=== PATIENT | female | born 1985 | race Caucasian/White ===

== ENCOUNTER → 2017-12-03 15:10 | Observation (INO) ==
[2017-12-03 14:58] LABS: Amphetamine Screen,Urine Negative ng/mL (Cutoff=1000); Barbiturate Screen,Urine Negative ng/mL (Cutoff=200); Benzodiazepines Screen,Urine Negative ng/mL (Cutoff=200); Cannabinoid Screen,Urine Negative ng/mL (Cutoff = 50); Cocaine Screen,Urine Negative ng/mL (Cutoff= 300); Opiate Screen,Urine Negative ng/mL (Cutoff=300); Phencyclidine Screen,Urine Negative ng/mL (Cutoff=25)
--- NOTE | 2017-12-03 16:14 | OB/GYN Progress Note ---
Date of Encounter: 12/03/17 Time of Encounter: 16:12 - Assessment and Plan (1) NST (non-stress test) reactive Status: Acute Baseline 140 (2) 36 weeks gestation of Status: Acute (3) Gestational diabetes mellitus in third trimester Status: Acute Qualifiers: Gestational diabetes mellitus control: diet-controlled Qualified Code(s): O24.410 - Gestational diabetes mellitus in , diet controlled Subjective - Subjective Interval history: Here for NST Antepartum ROS: movement normal, no loss of fluid, no vaginal bleeding, no contractions Objective - Vital Signs Vital Signs: Intake and Output 12/03/17 12/03/17 12/03/17 07:59 15:59 23:59 Other: Weight 84.4 kg Patient Weight 12/03/17 23:59 Weight 84.4 kg - Exam FHR: auscultation normal FHR comments: 140
== END | disposition home or self-care (01) ==
LOC: 1NENULAB
PROVIDERS: ADMIT Student in an Organized Health Care Education/Training Program; ATTEND Student in an Organized Health Care Education/Training Program

== ENCOUNTER 2017-12-22 07:17 | Inpatient (IN) ==
[2017-12-22] MEDS ORDERED: CeFAZolin Premix DUPLEX 2,000 MG/50 ML BAG IVPB ONE (07:49)
[2017-12-22] MEDS ORDERED: Oxytocin 20 units/ LR 1000 mL 20 UNIT/1,000 ML BAG IVC ONE (07:49)
[2017-12-22] MEDS ORDERED: Ringers Solution, Lactated 1,000 ML IVC ONE (07:49)
[2017-12-22] MEDS ORDERED: Famotidine 20 MG/2 ML VIAL IVP ONE (07:49)
[2017-12-22] MEDS ORDERED: Metoclopramide 10 MG/2 ML VIAL IVP ONE (07:49)
[2017-12-22] MEDS ORDERED: Ringers Solution, Lactated 1,000 ML IVC SCH ×3 (08:00→13:45)
[2017-12-22] MEDS ORDERED: Oxytocin 20 units/ LR 1000 mL 20 UNIT/1,000 ML BAG IVC SCH ×2 (08:00→13:45)
[2017-12-22 08:06] LABS: Basophils % 0.2 %; Eosinophils # 0.1 K/mcL (0.0-0.6); Eosinophils % 0.9 %; Hematocrit 33.9 % (35.3-44.9); Hemoglobin 11.5 g/dL (11.5-15.4); Immature Granulocytes % 0.7 % (0-4); Lymphocytes # 2.4 K/mcL (0.6-4.6); Lymphocytes % 19.7 %; Mean Corpuscular HGB Conc 33.9 g/dL (31.6-35.5); Mean Corpuscular Hemoglobin 31.1 pg (28.0-33.3); Mean Corpuscular Volume 91.6 fL (83.0-100.0); Mean Platelet Volume 11.9 fL (9.4-12.4); Monocytes # 0.9 K/mcL (0.0-1.3); Monocytes % 7.5 %; Neutrophils # 8.5 K/mcL (1.6-8.9); Platelet Count 194 K/mcL (140-400); Red Cell Distribution Width 14.4 % (11.5-14.5)
--- NOTE | 2017-12-22 08:14 | Anesthesia Evaluation PreOp ---
Date of Encounter: 12/22/17 Time of Encounter: 08:10 - Past History Planned Operation: Repeat Cardiac History: Denies any Significant Hx Pulmonary History: Denies Any Significant HX [employer] History: Denies Any Significant HX Other Medical History: Diabetes Type II (Gestational) Anesthesia History: No Prior Anesthetic Complications : Yes (39 weeks) Alcohol Use: none Drug use: none Medications and Allergies 3 Allergy/AdvReac Type Severity Reaction Status Date / Time No Known Allergies Allergy Verified 02/11/17 17:46 - Meds/Allergy Pre-op Review Medications Reviewed: Yes Allergies Reviewed: Yes Beta Blockers on Current Med List: No Anesthesia Results - Labs 12/22/17 07:51 Laboratory Tests 02/11/17 12/22/17 18:13 07:51 Hgb 11.5 Hct 33.9 L Plt Count 194 Sodium 140 Potassium 3.8 BUN 11 Creatinine 0.78 Anesthesia Exam O2 Sat Height 1.52 m Weight 86.4 kg Height: 5'0 Weight: 86 kg NPO (# of Hours): MN Pain Scale: 0 - HEENT Pupil (Motor): Pupils equal, EOMI Mallampati: II Teeth: Normal Oral Opening: Greater than 3 - [employer] LOC: Oriented [employer] Motor: Normal RUE, Normal LUE, Normal RLE, Normal LLE, Normal Face [employer] Sensory: Normal: RUE, LUE, RLE, LLE, Face - Cardiac Rhythm: Regular Murmur: None JVD: No Carotid Bruit: No - Pulmonary Breath Sounds: bilateral Clear Respiratory Effort: Symmetrical Anesthesia Assess/Plan ASA Score: 2 Modified Rachid Scale for Level of Consciousness: Cooperative, oriented, and tranquil Anesthetic Plan: Regional Monitoring Plan: Standard Monitors Recovery Plan: PACU (Discussed SAB, possible GA, agrees to proceed)
[2017-12-22 08:22] LABS: Alanine Aminotransferase 9 Units/L (7-52); Aspartate Amino Transferase 14 Units/L (13-39); BUN/Creatinine Ratio 17 (6-26); Blood Urea Nitrogen 8 mg/dL (6-20); Lactate Dehydrogenase 172 Units/L (140-271); Uric Acid 3.9 mg/dL (2.3-7.6); eGFR For African Americans > 60 (> 60); eGFR For Non-African Americans > 60 (> 60)
[2017-12-22 08:54] LABS: Glucose 92 mg/dL (70-105)
[2017-12-22 09:23] LABS: Amphetamine Screen,Urine Negative ng/mL (Cutoff=1000); Barbiturate Screen,Urine Negative ng/mL (Cutoff=200); Benzodiazepines Screen,Urine Negative ng/mL (Cutoff=200); Cannabinoid Screen,Urine Negative ng/mL (Cutoff = 50); Cocaine Screen,Urine Negative ng/mL (Cutoff= 300); Opiate Screen,Urine Negative ng/mL (Cutoff=300); Phencyclidine Screen,Urine Negative ng/mL (Cutoff=25)
[2017-12-22] MEDS ORDERED: *HR* OxyCODONE Immed Rel 5 MG TABLET PO PRN (11:01)
[2017-12-22] MEDS ORDERED: *HR* HYDROmorphone 2 MG TABLET PO PRN (11:01)
[2017-12-22] MEDS ORDERED: Naloxone 0.4 MG/ML INJ IVP PRN (11:01)
[2017-12-22] MEDS ORDERED: *HR* Meperidine 25 MG/ML SYRINGE IVP PRN (11:01)
[2017-12-22] MEDS ORDERED: Ondansetron 4 MG/2 ML VIAL IVP ONE (11:01)
[2017-12-22] MEDS ORDERED: Albuterol 2.5 MG/3 ML NEBULIZER IH ONE (11:01)
[2017-12-22] MEDS ORDERED: Acetaminophen IV 1,000 MG/100 ML INFUS..BTL IVPB ONE (11:01)
--- NOTE | 2017-12-22 11:18 | History & Physical Report ---
Date of Encounter: 12/22/17 Time of Encounter: 11:17 24 Hour HP Update - Instructions Instructions: If the History and Physical is less than 30 days old and was completed prior to A.M. admission and or procedure and has NOT been updated on calendar day of procedure please complete this update prior to performing procedure. - Update Patient reports changes in Medical Condition: No Changes in examination, assessment, or condition: No Changes in Medication: No Preop tests/diagnostics Reviewed: Yes Surgery Remains Indicated: Yes Consent for Planned Operative Procedure(s) Verified: Yes - Pre-Operative Checklist Preoperative Checklist Indicated: Yes Prophylactic Antibiotic Ordered: Yes Home Medications Include Beta Rah: No Beta Rah Taken Today (Day of Surgery): No Beta Rah Taken Yesterday (Day Prior to Surgery): No Is VTE Prophylaxis Indicated?: Yes
[2017-12-22] MEDS ORDERED: Water for inj. (sterile) 10 ML IV ONE (12:02)
[2017-12-22] MEDS ORDERED: *HR* Oxytocin 10 UNIT/ML VIAL IM ONE (12:02)
[2017-12-22] MEDS ORDERED: EPHEDrine 50 MG/ML VIAL ONE (12:02)
[2017-12-22] MEDS ORDERED: Ondansetron 4 MG/2 ML VIAL ONE (12:02)
--- NOTE | 2017-12-22 12:09 | Anesthesia Procedures ---
Date of Encounter: 12/22/17 Time of Encounter: 11:57 Procedures: Anesthesia - Epidural/Spinal Patient ID/Chart reviewed: Yes Patient examined: Yes OB Eval: Gestational age: term OB Eval: : 5 OB Eval: Hx Para: 3 OB Eval: Contractions: Non-stressed pattern Consent Obtained: Yes Supplemental Oxygen: Nasal Cannula Supplemental Oxygen Rate (L/min): 2 Site Prep: Aseptic Technique, Sterile prep and drape, Povidone-Iodine 1% Patient position: upright Local Anesthetic: Lidocaine 1% Amount of Local Anesthetic used: 3 Interspace Used: L3-L4 Blood: No CSF: Yes Paresthesia: No Spinal Needle Gauge: 25 (pencan) Spinal Dose: 2ml 0.5%bupiv 10mcgfentanyl 0.3mg duramorph Procedure: pt tolerated procedure well. no complications. vss. fhr stable. see anes record for complete vitals.
[2017-12-22] MEDS ORDERED: Ringers Solution, Lactated 1,000 ML ONE (12:24)
[2017-12-22] MEDS ORDERED: Lidocaine -MPF 1% 5 ML AMPUL ONE (12:25)
--- NOTE | 2017-12-22 13:44 | OB/GYN Procedure Note ---
Section - Date of procedure: 12/22/17 Preop diagnosis: desires repeat Post-op diagnosis: same Procedure: repeat low transverse, bilateral tubal ligation Surgeon: Yenny Urena Estimated blood loss (cc): 500 Was there an market research assistant present: Yes Wedger Machine: Clara Giordano Anesthesiologist: Karsten Gusman Head Soft Sugar Operator: Juan Luis Oliver Anesthesia Type: Spinal section complications: none Disposition: L&D Recovery Room Specimens: Cord blood - Infant (s) A Delivery Date: 12/22/17 Infant Delivery Time: 12:39 Presentation: vertex Position: unknown Gender: Male Gram Weight: 3.25 kg at 1 minute: 9 at 5 minutes: 9 Shoulder Dystocia: not encountered - Narrative Narrative: Patient was brought to the operating room and was given satisfactory spinal anesthesia. The abdomen was prepped and draped in a sterile fashion. A Pfannenstiel incision was made and carried sharply down to the level of fascia. The fascia was incised transversely. The fascia was dissected away from the underlying rectus muscles. With sharp and blunt dissection, rectus muscles were divided in midline. The peritoneum was entered bluntly. The incision was carried vertically with scissors. Transverse incision was made across the bladder peritoneum. The bladder was dissected away from the underlying lower uterine segment. Bladder retractor was placed to protect the bladder. The lower uterine segment was entered sharply with a scalpel. The Incision was extended with bandage scissors. The amniotic sac was ruptured and clear stained amniotic fluid was encountered. The 's head was pulled up and delivered easily as were the shoulders and body. The mouth and oropharynx were suctioned. The cord was clamped and cut. The infant was passed off to the waiting nurse in satisfactory condition. APGARS 9/9, weight 3250g. Placenta was extracted completely and found to be intact. Uterus was explored and found to be empty. Uterus was delivered through the abdominal incision and massaged vigorously. Intravenous Pitocin was administered. The uterine incision was closed primarily with a running locking stitch of 0 Vicryl with adequate hemostasis. Secondary running locking stitch was placed for extra strength to the wound. At this point, attention was diverted to the patient's tubes, a Maru clamp grasped the isthmic portion of each tube and approximately 1-cm knuckle on either side was tied off with two lengths of 0 plain catgut. Intervening knuckle was excised and passed off the field. The uterus was returned to its proper anatomic position in the abdomen. The fascia was closed with a simple running stitch of 0 vicryl. The skin was closed with running subcuticular stitch of 4-0 vicryl. Uterus was expressed of its contents. Patient was brought to the recovery room in satisfactory condition. There were no complications. All sponge, needle, and instrument counts were reported to be correct.
[2017-12-22] MEDS ORDERED: Simethicone 80 MG TAB.CHEW PO PRN (13:45)
[2017-12-22] MEDS ORDERED: Ondansetron 4 MG/2 ML VIAL IVP PRN (13:45)
[2017-12-22] MEDS ORDERED: Sennosides 8.6 MG TABLET PO PRN (13:45)
[2017-12-22] MEDS ORDERED: Metoclopramide 10 MG/2 ML VIAL IVP PRN (13:45)
--- NOTE | 2017-12-22 14:31 | Anesthesia Evaluation Post Op ---
Date of Encounter: 12/22/17 Time of Encounter: 14:30 - Lungs Lungs: Clear Ascult./Percussion - Airway Airway: Non-obstructed - Cardiovascular Regular Rate, Baseline Rhythm - Mental Status Mental Status: Alert & Oriented, Answers Appropriately, Baseline Status - Pain Pain Scale: 2 Pain Scale used: Numeric (1 - 10) - Nausea Vomiting Nausea Vomiting: Not Present - Hydration Hydration: NPO, Nava catheter - Discharge PostOp Status: Transfer Patient to floor
[2017-12-22] MEDS: Ibuprofen 600 MG TABLET PO PRN (21:07)
[2017-12-22] MEDS: *HR* OxyCODONE/APAP 5/325 TABLET PO PRN (22:48)
[2017-12-23] MEDS: *HR* OxyCODONE/APAP 5/325 TABLET PO PRN ×3 (03:34→12:32)
[2017-12-23] MEDS: Ibuprofen 600 MG TABLET PO PRN ×2 (03:34→12:32)
[2017-12-23 04:48] LABS: Basophils % 0.2 %; Eosinophils # 0.1 K/mcL (0.0-0.6); Eosinophils % 0.7 %; Hematocrit 33.2 % (35.3-44.9); Hemoglobin 11.1 g/dL (11.5-15.4); Immature Granulocytes % 0.4 % (0-4); Lymphocytes # 2.2 K/mcL (0.6-4.6); Lymphocytes % 17.5 %; Mean Corpuscular HGB Conc 33.4 g/dL (31.6-35.5); Mean Corpuscular Hemoglobin 30.5 pg (28.0-33.3); Mean Corpuscular Volume 91.2 fL (83.0-100.0); Mean Platelet Volume 12.2 fL (9.4-12.4); Monocytes # 0.8 K/mcL (0.0-1.3); Monocytes % 6.4 %; Neutrophils # 9.3 K/mcL (1.6-8.9); Platelet Count 182 K/mcL (140-400); Red Blood Count 3.64 M/mcL (3.82-4.97); Red Cell Distribution Width 14.6 % (11.5-14.5); Segmented Neutrophils % 74.8 %
[2017-12-23] MEDS ORDERED: Prenatal Vit/FA 1 EACH TABLET PO SCH (09:00)
[2017-12-23 11:40] VITALS: BP 137/83
--- NOTE | 2017-12-23 15:02 | Discharge Summary ---
Date of Encounter: 12/23/17 Time of Encounter: 15:00 ( ) - Discharge Diagnosis (1) Status post section Priority: Primary Status: Acute Comments: POD #1 Pain well controlled with PO medications Tolerating regular diet Voiding independently Passing flatus, but no BM yet Lochia light Ambulating independently Requesting early discharge today Ok to discharge home and follow up as scheduled - Discharge Medications Prescriptions: OxyCODONE/APAP 5/325 [Percocet 5/325 MG] 1 each PO Q4HR PRN 5 Days #30 tablet PRN Reason: Moderate pain 4-6 Ibuprofen [Motrin] 600 mg PO Q6HR PRN #30 tablet PRN Reason: Cramping Docusate [Colace] 100 mg PO BID #30 capsule Home Medications: Docusate [Colace] 100 mg PO BID #30 capsule 12/23/17 [Rx] Ibuprofen [Motrin] 600 mg PO Q6HR PRN #30 tablet 12/23/17 [Rx] OxyCODONE/APAP 5/325 [Percocet 5/325 MG] 1 each PO Q4HR PRN 5 Days #30 tablet [Rx] Vit/FA 1 each PO DAILY tablet 12/23/17 [Rx] Simethicone [Gas-X] 80 mg PO TID PRN tab.chew 12/23/17 [Rx] Allergies/Adverse Reactions: 3 Allergy/AdvReac Type Severity Reaction Status Date / Time No Known Allergies Allergy Verified 02/11/17 17:46 Data Procedures and tests throughout hospitalization: Laboratory Tests 12/22/17 12/22/17 12/22/17 07:51 07:55 08:45 WBC 11.9 H RBC 3.70 L Hgb 11.5 Hct 33.9 L MCV 91.6 MCH 31.1 MCHC 33.9 RDW 14.4 Plt Count 194 MPV 11.9 Immature Gran % 0.7 Seg Neutrophils % 71.0 Lymphocytes % 19.7 Monocytes % 7.5 Eosinophils % 0.9 Basophils % 0.2 Neutrophils # 8.5 Lymphocytes # 2.4 Monocytes # 0.9 Eosinophils # 0.1 Basophils # 0.0 BUN 8 Creatinine 0.48 L Est GFR ( Amer) > 60 Est GFR (Non-Af Amer) > 60 BUN/Creatinine Ratio 17 Glucose 92 Uric Acid 3.9 AST 14 ALT 9 Lactate Dehydrogenase 172 Urine Opiates Screen Negative Ur Barbiturates Screen Negative Ur Phencyclidine Scrn Negative Ur Amphetamines Screen Negative U Benzodiazepines Scrn Negative Urine Cocaine Screen Negative U Marijuana (THC) Screen Negative 12/23/17 04:21 WBC 12.4 H RBC 3.64 L Hgb 11.1 L Hct 33.2 L MCV 91.2 MCH 30.5 MCHC 33.4 RDW 14.6 H Plt Count 182 MPV 12.2 Immature Gran % 0.4 Seg Neutrophils % 74.8 Lymphocytes % 17.5 Monocytes % 6.4 Eosinophils % 0.7 Basophils % 0.2 Neutrophils # 9.3 H Lymphocytes # 2.2 Monocytes # 0.8 Eosinophils # 0.1 Basophils # 0.0 BUN Creatinine Est GFR ( Amer) Est GFR (Non-Af Amer) BUN/Creatinine Ratio Glucose Uric Acid AST ALT Lactate Dehydrogenase Urine Opiates Screen Ur Barbiturates Screen Ur Phencyclidine Scrn Ur Amphetamines Screen U Benzodiazepines Scrn Urine Cocaine Screen U Marijuana (THC) Screen Labs on day of discharge: Labs from last 24 hours 12/23/17 04:21 WBC 12.4 H RBC 3.64 L Hgb 11.1 L Hct 33.2 L MCV 91.2 MCH 30.5 MCHC 33.4 RDW 14.6 H Plt Count 182 MPV 12.2 Immature Gran % 0.4 Seg Neutrophils % 74.8 Lymphocytes % 17.5 Monocytes % 6.4 Eosinophils % 0.7 Basophils % 0.2 Neutrophils # 9.3 H Lymphocytes # 2.2 Monocytes # 0.8 Eosinophils # 0.1 Basophils # 0.0 Date of admission: 12/22/17 07:17 Primary care physician: PCP NONE Discharging clinician: Mendy Seay Anticipated date of discharge: 12/23/17 - Patient Status Disposition: Home, Self-Care Condition: Good Functional capacity at discharge: independent ambulation Overall status at discharge: patient is progressing back to baseline - Discharge Instructions Follow Up With: NONE,PCP [Primary Care Provider] - Jeremiah Ochoa DO [Partnered Physician] - - Diet and Activity Activity: increase activity as tolerated Diet: regular diet Hospital Course Reason for admission: section, IUP at term Delivery: section Episiotomy: none Laceration: none Other procedures: none complications: none Discharge diagnosis: IUP at term delivered baby: male Time Attestation: Total time spent providing and/or coordinating discharge services: Time Spent: Less than 30 minutes - VTE Documentation of Mechanical Device: Intermittent pneumatic compression device Exam - Constitutional Vitals: Temp Pulse Resp BP Pulse Ox 98.4 F 92 16 137/83 96 12/23/17 11:39 12/23/17 11:39 12/23/17 11:39 12/23/17 11:39 12/23/17 11:39 General appearance IM: A&O X 3 - Respiratory Respiratory exam: Present: CTAB - Cardiovascular Cardiovascular exam IM: Present: RRR, +S1, +S2 - GI/Abdominal GI/Abdominal exam IM: normal bowel sounds Incision: normal, dry, intact - Rectal Rectal exam: deferred - Uterine Tone: Firm Uterus Position: At Umbilicus, Midline - Extremities Exam Extremities exam IM: Present: normal inspection - Neurological Exam Neurological exam: alert, oriented X3 - Psychiatric Additional comments: Patient feeling well today - s/sx of ppd discussed with her and partner.
== END 2017-12-23 15:55 | disposition home or self-care (01) | DRG 540 ==
LOC: 1NENULAB 07:17 → 1NENUOBS 15:52
PROVIDERS: ADMIT Student in an Organized Health Care Education/Training Program; ATTEND Student in an Organized Health Care Education/Training Program

== ENCOUNTER 2019-09-27 19:21 | Observation (INO) ==
[2019-09-27] MEDS ORDERED: 0.9 % Sodium Chloride 1,000 ML IVC ONE (20:29)
[2019-09-27] MEDS ORDERED: *HR* FentaNYL (PF) 100 MCG/2 ML VIAL IVP ONE (20:29)
[2019-09-27 20:34] LABS: Bilirubin,Urine Moderate (Negative); Blood,Urine Negative (Negative); Color,Urine Dark Yellow (Yellow); Glucose,Urine (UA) Normal (Normal); Ketones,Urine Negative (Negative); Leukocyte Esterase,Urine Negative (Negative); Nitrite,Urine Negative (Negative); Protein,Urine Trace mg/dL (Neg-Trace); Specific Gravity,Urine 1.017 (1.010-1.025)
[2019-09-27 20:35] LABS: Clarity,Urine Hazy (Clear)
[2019-09-27] MEDS ORDERED: Ondansetron 4 MG/2 ML VIAL IVP STA (20:36)
[2019-09-27 20:54] LABS: Basophils # 0.1 K/mcL (0.0-0.2); Basophils % 0.6 %; Eosinophils # 0.3 K/mcL (0.0-0.6); Eosinophils % 2.6 %; Hematocrit 34.8 % (35.3-44.9); Hemoglobin 11.9 g/dL (11.5-15.4); Immature Granulocytes % 0.3 % (0-4); Lymphocytes # 2.4 K/mcL (0.6-4.6); Lymphocytes % 25.8 %; Mean Corpuscular HGB Conc 34.2 g/dL (31.6-35.5); Mean Corpuscular Hemoglobin 31.4 pg (28.0-33.3); Mean Corpuscular Volume 91.8 fL (83.0-100.0); Mean Platelet Volume 11.1 fL (9.4-12.4); Monocytes # 0.8 K/mcL (0.0-1.3); Neutrophils # 5.9 K/mcL (1.6-8.9); Platelet Count 282 K/mcL (140-400); Red Blood Count 3.79 M/mcL (3.82-4.97); Red Cell Distribution Width 16.1 % (11.5-14.5); Segmented Neutrophils % 62.7 %; White Blood Count 9.5 K/mcL (4.3-11.1)
[2019-09-27 21:14] LABS: Alanine Aminotransferase 326 Units/L (7-52); Albumin 4.1 g/dL (3.5-5.7); Albumin/Globulin Ratio 1.5 (1.1-2.2); Alkaline Phosphatase 272 Units/L (34-104); Aspartate Amino Transferase 119 Units/L (13-39); BUN/Creatinine Ratio 18 (6-26); Bilirubin,Direct 2.8 mg/dL (0.0-0.2); Bilirubin,Indirect 1.7 mg/dL (0.0-1.0); Bilirubin,Total 4.5 mg/dL (0.3-1.0); Blood Urea Nitrogen 10 mg/dL (6-20); Calcium 9.2 mg/dL (8.6-10.3); Carbon Dioxide 19 mEq/L (23-29); Chloride 108 mEq/L (98-107); Globulin 2.7 g/dL (2.4-3.5); Glucose 120 mg/dL (70-105); Lipase 16 Units/L (11-82); Osmolality,Calculated 282 (280-300); Potassium 3.7 mEq/L (3.5-5.1); Sodium 136 mEq/L (136-145); Total Protein 6.8 g/dL (6.4-8.9); eGFR For African Americans > 60 (> 60); eGFR For Non-African Americans > 60 (> 60)
[2019-09-27] MEDS ORDERED: *HR* HYDROmorphone (PF) 1 MG/ML SYRINGE IVP ONE (22:33)
[2019-09-27] MEDS: Nicotine 21 MG PATCH.TD24 TD SCH (22:54)
[2019-09-27] MEDS ORDERED: Naloxone 0.4 MG/ML INJ IVP PRN (23:26)
[2019-09-27] MEDS ORDERED: Ondansetron 4 MG/2 ML VIAL IVP PRN (23:26)
[2019-09-27] MEDS ORDERED: 0.9 % Sodium Chloride 1,000 ML IVC SCH (23:30)
[2019-09-28 05:34] LABS: Basophils # 0.1 K/mcL (0.0-0.2); Basophils % 0.7 %; Eosinophils # 0.2 K/mcL (0.0-0.6); Eosinophils % 2.9 %; Hematocrit 32.4 % (35.3-44.9); Hemoglobin 10.6 g/dL (11.5-15.4); Immature Granulocytes % 0.4 % (0-4); Lymphocytes # 2.1 K/mcL (0.6-4.6); Lymphocytes % 29.9 %; Mean Corpuscular HGB Conc 32.7 g/dL (31.6-35.5); Mean Corpuscular Hemoglobin 30.5 pg (28.0-33.3); Mean Corpuscular Volume 93.4 fL (83.0-100.0); Mean Platelet Volume 11.5 fL (9.4-12.4); Monocytes # 0.7 K/mcL (0.0-1.3); Monocytes % 9.2 %; Neutrophils # 4.1 K/mcL (1.6-8.9); Platelet Count 245 K/mcL (140-400); Red Blood Count 3.47 M/mcL (3.82-4.97); Red Cell Distribution Width 16.4 % (11.5-14.5); Segmented Neutrophils % 56.9 %; White Blood Count 7.2 K/mcL (4.3-11.1)
[2019-09-28 05:39] LABS: Alanine Aminotransferase 271 Units/L (7-52); Albumin 3.7 g/dL (3.5-5.7); Albumin/Globulin Ratio 1.5 (1.1-2.2); Alkaline Phosphatase 247 Units/L (34-104); Aspartate Amino Transferase 99 Units/L (13-39); BUN/Creatinine Ratio 14 (6-26); Bilirubin,Total 3.7 mg/dL (0.3-1.0); Blood Urea Nitrogen 8 mg/dL (6-20); Calcium 8.4 mg/dL (8.6-10.3); Carbon Dioxide 20 mEq/L (23-29); Chloride 109 mEq/L (98-107); Globulin 2.5 g/dL (2.4-3.5); Glucose 96 mg/dL (70-105); Osmolality,Calculated 284 (280-300); Potassium 3.9 mEq/L (3.5-5.1); Sodium 138 mEq/L (136-145); Total Protein 6.2 g/dL (6.4-8.9); eGFR For African Americans > 60 (> 60); eGFR For Non-African Americans > 60 (> 60)
[2019-09-28] MEDS: *HR* Heparin 5,000 UNIT/ML VIAL SQ SCH ×3 (05:57→21:19)
[2019-09-28] MEDS: Pantoprazole 40 MG VIAL IVP SCH (08:19)
[2019-09-28] MEDS ORDERED: Lidocaine -MPF 2% 2 ML VIAL ONE (12:47)
[2019-09-28] MEDS ORDERED: *HR* Midazolam HCl 2 MG/2 ML VIAL ONE (12:47)
[2019-09-28] MEDS ORDERED: *HR* FentaNYL (PF) 100 MCG/2 ML VIAL ONE (12:47)
[2019-09-28] MEDS ORDERED: *HR* Propofol 200 MG/20 ML VIAL IVP ONE ×2 (12:47→13:49)
[2019-09-28] MEDS ORDERED: *HR* Succinylcholine 200 MG/10 ML VIAL IVP ONE (12:47)
[2019-09-28] MEDS ORDERED: Indomethacin 50 MG SUPP.RECT RC ONE (13:46)
[2019-09-28] MEDS ORDERED: Dexamethasone 4 MG/ML VIAL ONE (13:48)
[2019-09-28] MEDS ORDERED: Ondansetron 4 MG/2 ML VIAL ONE (13:48)
[2019-09-28] MEDS: Nicotine 21 MG PATCH.TD24 TD SCH (21:20)
[2019-09-29] MEDS: *HR* Heparin 5,000 UNIT/ML VIAL SQ SCH (05:18)
[2019-09-29] MEDS ORDERED: 0.9 % Sodium Chloride 1,000 ML IVC SCH (09:15)
[2019-09-29 09:46] LABS: Hematocrit 33.6 % (35.3-44.9); Hemoglobin 11.3 g/dL (11.5-15.4); Mean Corpuscular HGB Conc 33.6 g/dL (31.6-35.5); Mean Corpuscular Hemoglobin 30.7 pg (28.0-33.3); Mean Corpuscular Volume 91.3 fL (83.0-100.0); Mean Platelet Volume 11.5 fL (9.4-12.4); Platelet Count 277 K/mcL (140-400); Red Blood Count 3.68 M/mcL (3.82-4.97); Red Cell Distribution Width 15.8 % (11.5-14.5); White Blood Count 9.5 K/mcL (4.3-11.1)
[2019-09-29 10:07] LABS: BUN/Creatinine Ratio 13 (6-26); Blood Urea Nitrogen 8 mg/dL (6-20); Carbon Dioxide 20 mEq/L (23-29); Chloride 106 mEq/L (98-107); Glucose 96 mg/dL (70-105); Osmolality,Calculated 284 (280-300); Potassium 3.7 mEq/L (3.5-5.1); Sodium 138 mEq/L (136-145); eGFR For African Americans > 60 (> 60); eGFR For Non-African Americans > 60 (> 60)
[2019-09-29] MEDS: Pantoprazole 40 MG VIAL IVP SCH (10:51)
[2019-09-29] MEDS ORDERED: *HR* Propofol 200 MG/20 ML VIAL IVP ONE (12:28)
[2019-09-29] MEDS ORDERED: Lidocaine -MPF 2% 2 ML VIAL ONE (12:29)
[2019-09-29] MEDS ORDERED: Lidocaine -MPF 4% 5 ML AMPUL ONE (12:29)
[2019-09-29] MEDS ORDERED: Dexamethasone 4 MG/ML VIAL ONE (12:29)
[2019-09-29] MEDS ORDERED: *HR* Midazolam HCl 2 MG/2 ML VIAL ONE (12:29)
[2019-09-29] MEDS ORDERED: Ondansetron 4 MG/2 ML VIAL ONE (12:29)
[2019-09-29] MEDS ORDERED: *HR* FentaNYL (PF) 100 MCG/2 ML VIAL ONE ×2 (12:29→14:22)
[2019-09-29] MEDS ORDERED: *HR* Rocuronium Bromide 50 MG/5 ML VIAL ONE (12:30)
[2019-09-29] MEDS ORDERED: Famotidine 20 MG/2 ML VIAL ONE (13:13)
[2019-09-29] MEDS ORDERED: Acetaminophen IV 1,000 MG/100 ML INFUS..BTL ONE (13:13)
[2019-09-29] MEDS ORDERED: Bupivacaine/EPI 1:200k 0.5%PF 30 ML VIAL ONE (13:23)
[2019-09-29] MEDS ORDERED: Acetaminophen IV 1,000 MG/100 ML INFUS..BTL IVPB ONE (13:30)
[2019-09-29] MEDS ORDERED: CefOXitin 2,000 MG VIAL ONE (13:45)
[2019-09-29] MEDS ORDERED: cefOXitin 2,000 MG in Water for inj. (sterile) 20 ML IVP ONE (13:52)
[2019-09-29] MEDS ORDERED: Neostigmine Methylsulfate 3 MG/3 ML SYRINGE ONE (14:36)
[2019-09-29] MEDS ORDERED: Ketorolac 30 MG/ML VIAL ONE (14:45)
[2019-09-29] MEDS ORDERED: Ondansetron 4 MG/2 ML VIAL IVP PRN (15:41)
[2019-09-29] MEDS ORDERED: NAPROXEN SODIUM PO PRN (15:41)
[2019-09-29 18:04] VITALS: BP 131/86
[2019-09-30] MEDS ORDERED: Nicotine 21 MG PATCH.TD24 TD SCH (09:00)
== END 2019-09-29 18:48 | disposition home or self-care (01) ==
LOC: EMEROOARM 19:21 → 3ANU 19:21
PROVIDERS: ADMIT Internal Medicine; ATTEND Internal Medicine